=== PATIENT | female | born 1995 | race Two or more races ===

== ENCOUNTER 2016-08-18 03:36 | Emergency (ER) | payer OTHER ==
[~2016-08-18] VITALS: Ht 167.6 cm; Wt 102.8 kg
[~2016-08-18 03:36] MED LIST: FERROUS SULFAT325 MG PO; IRON325 MG PO; LUTERA1 EAC1 PO; MOTRIN800 MG PO; PRENATAL TABLE1 EAC3 PO
[2016-08-18 04:36] LABS: ADD MIUA? YES; BILIRUBIN NEGATIVE; BLOOD NEGATIVE; COLOR YELLOW ((YELLOW)); GLUCOSE (STRIP) NEGATIVE; KETONES NEGATIVE; LEUKOCYTES LARGE; NITRITE NEGATIVE; PH, URINE 6.5 (5-8); PROTEIN (STRIP) NEGATIVE; SPECIFIC GRAVITY 1.019 (1.000-1.030); UROBILINOGEN 0.2 MG/DL (0.2-1.0)
[2016-08-18 04:45] LABS: HEMATOCRIT 39.8 % (36.0-46.0); MCH 27.5 PG (29.0-34.0); MCHC 31.9 G/DL (30.0-36.0); MCV 86.3 FL (83-99); MEAN PLAT.VOLUME 11.2 uM^3 (9.5-12.4); PLATELET COUNT 273 K/uL (156-360); RBC DIS.WIDTH-CV 13.8 % (11.8-14.6); RBC DIS.WIDTH-SD 42.8 % (39-53); RED BLOOD COUNT 4.61 M/uL (3.80-5.20); WHITE BLOOD COUNT 14.7 K/uL (4.1-10.2)
[2016-08-18 04:47] LABS: BACTERIA RARE /HPF; EPITHELIAL CELLS 1+ /HPF; MUCUS TRACE /LPF; RED BLOOD CELLS 0-5 /HPF (0-5); UCUL ADDED? NO
[2016-08-18 04:56] LABS: CHLORIDE 107 mEq/L (99-109); POTASSIUM 3.8 mEq/L (3.7-5.4); SODIUM 139 mEq/L (136-147)
[2016-08-18 04:58] LABS: GLUCOSE 113 mg/dL (70-99)
[2016-08-18 05:00] LABS: ANION GAP 7 MEQ/L (2-14); TOTAL BILIRUBIN 0.4 mg/dL (0.0-1.0)
[2016-08-18 05:02] LABS: ALKALINE PHOSPHATASE 166 IU/L (3-129); GFR ESTIMATE (CALCULATED) > 59 mL/min/
[2016-08-18 05:03] LABS: UREA NITROGEN (BUN) 14 mg/dL (9-23)
[2016-08-18 05:05] LABS: LIPASE 17 U/L (1.0-51.0)
[2016-08-18 05:12] LABS: QUANTITATIVE HCG < 4.0 MIU/ML
[2016-08-18] MEDS ORDERED: PEPCID20 MG PO (08:25)
[2016-08-18] MEDS ORDERED: CARAFATE1 GM PO (08:25)
[2016-08-18 09:06] VITALS: BP 135/84
== END 2016-08-18 09:08 | disposition home or self-care (01) ==
LOC: EXP 03:36 → EME 03:36 → EXP 09:08
PROVIDERS: Physician Assistant Medical
DX: R10.13 Epigastric pain (principal)
CPT/HCPCS: 74177; 80053; 81003; 83690; 84702; 85027; 87086; 99281; 99285; J7030